=== PATIENT | female | born 1965 | race Caucasian/White ===

== ENCOUNTER 2018-09-29 18:40 | Observation (INO) ==
[2018-09-29] MEDS ORDERED: 0.9 % Sodium Chloride 1,000 ML IVC ONE (19:45)
[2018-09-29] MEDS ORDERED: Ondansetron 4 MG/2 ML VIAL IVP ONE (19:45)
[2018-09-29 20:07] LABS: Basophils # 0.1 K/mcL (0.0-0.2); Basophils % 0.6 %; Eosinophils # 0.1 K/mcL (0.0-0.6); Eosinophils % 0.3 %; Hematocrit 44.3 % (35.3-44.9); Hemoglobin 14.4 g/dL (11.5-15.4); Immature Granulocytes % 0.9 % (0-4); Lymphocytes % 7.7 %; Mean Corpuscular HGB Conc 32.5 g/dL (31.6-35.5); Mean Corpuscular Hemoglobin 25.3 pg (28.0-33.3); Mean Corpuscular Volume 77.7 fL (83.0-100.0); Mean Platelet Volume 11.7 fL (9.4-12.4); Monocytes # 2.2 K/mcL (0.0-1.3); Monocytes % 11.9 %; Neutrophils # 14.8 K/mcL (1.6-8.9); Platelet Count 249 K/mcL (140-400); Red Cell Distribution Width 17.4 % (11.5-14.5); Segmented Neutrophils % 78.6 %
[2018-09-29 20:10] LABS: Lymphocytes # 1.5 K/mcL (0.6-4.6)
[2018-09-29 20:19] LABS: Bilirubin,Urine Small (Negative); Blood,Urine Large (Negative); Clarity,Urine Cloudy (Clear); Color,Urine Yellow (Yellow); Glucose,Urine (UA) Normal (Normal); Ketones,Urine Trace mg/dL (Negative); Leukocyte Esterase,Urine Small (Negative); Nitrite,Urine Negative (Negative); Protein,Urine >=300 mg/dL (Neg-Trace); Specific Gravity,Urine >= 1.030 (1.010-1.025); Urobilinogen,Urine Normal (Normal)
[2018-09-29 20:24] LABS: Alanine Aminotransferase 18 Units/L (7-52); Albumin 4.1 g/dL (3.5-5.7); Albumin/Globulin Ratio 1.3 (1.1-2.2); Alkaline Phosphatase 66 Units/L (34-104); Amylase 14 Units/L (29-103); Aspartate Amino Transferase 11 Units/L (13-39); BUN/Creatinine Ratio 10 (6-26); Bilirubin,Total 0.7 mg/dL (0.3-1.0); Blood Urea Nitrogen 8 mg/dL (6-20); Calcium 9.7 mg/dL (8.6-10.3); Carbon Dioxide 26 mEq/L (23-29); Chloride 97 mEq/L (98-107); Creatine Kinase 42 Units/L (30-223); Globulin 3.1 g/dL (2.4-3.5); Glucose 211 mg/dL (70-105); Lipase 10 Units/L (11-82); Osmolality,Calculated 277 (280-300); Potassium 3.6 mEq/L (3.5-5.1); Sodium 131 mEq/L (136-145); Total Protein 7.2 g/dL (6.4-8.9); Troponin I < 0.03 ng/mL (< 0.04); eGFR For Non-African Americans > 60 (> 60)
[2018-09-29 20:25] LABS: WBC,Urine TNTC per hpf (0-3)
[2018-09-29] MEDS ORDERED: cefTRIAXone 1,000 MG in Water for inj. (sterile) 20 ML 10 ML IVP ONE (20:33)
--- NOTE | 2018-09-29 21:36 | Emergency Department Note ---
Disposition Clinical Impression: Hypoxia Urinary tract infection Qualifiers: Urinary tract infection type: acute cystitis Hematuria presence: without hematuria Qualified Code(s): N30.00 - Acute cystitis without hematuria Disposition: Admitted As Inpatient Condition: Fair Time of Disposition: 01:20 Abdominal Pain HPI - General Chief Complaint: ED Urogenital-Female Stated Complaint: stomach pain Time Seen by Provider: 09/29/18 19:24 Source: patient Mode of arrival: ambulatory Limitations: no limitations Nursing Notes Reviewed: Yes Vital Signs Reviewed: Yes - History of Present Illness HPI Narrative: 53-year-old female presents to the area with complaints of midepigastric abdomin al pain and dysuria. Patient reports she has had the symptoms for approximately 2 days. Patient reports she has had nausea and vomiting for the past 2 days as well. Patient denies any fevers or chills. Patient denies any back pain. Patient reports normal bowel movements. Patient denies similar symptoms in the past. Daughter reports patient is noncompliant. Patient does have a history of COPD and continues to smoke. Patient also has a history of sleep apnea but does not wear CPAP machine. Pt Subjective Complaint: abdominal pain Onset (ago): day(s) (2) Consistency: constant Location: epigastric Pain Severity: moderate Pain Scale: 5 Quality: stabbing, sharp Radiation: none Migration to: no migration Improves with: nothing Worsens with: eating Associated symptoms: Reports: nausea, vomiting, dysuria. Denies: diarrhea, fever Treatments prior to arrival: none - Related Data Home Medications Medication Instructions Recorded Confirmed Albuterol Sulfate [Ventolin Hfa] 2 puff IH Q4H PRN 07/16/16 09/29/18 Aspirin 81 mg PO DAILY 07/16/16 09/29/18 Budesonide/Formoterol 160/4.5 2 puff IH BIDR 07/16/16 09/29/18 [Symbicort 160/4.5] Citalopram [CeleXA] 20 mg PO DAILY 07/16/16 09/29/18 Lisinopril/Hydrochlorothiazide 1 tab PO DAILY 07/16/16 09/29/18 [Zestoretic 10-12.5 mg Tablet] Metformin HCl [Glucophage] 1,000 mg PO BID 07/16/16 09/29/18 Omeprazole Magnesium [Prilosec Otc] 40 mg PO DAILY 07/16/16 09/29/18 Pregabalin [Lyrica] 200 mg PO BID 07/16/16 09/29/18 Tiotropium [place] [Spiriva 2 puff IH BID 07/16/16 09/29/18 Respimat] Oxybutynin [Ditropan] 5 mg PO BID 10/10/17 09/29/18 buPROPion HCl [Zyban] 150 mg PO Q12H 10/10/17 09/29/18 traZODone [TraZODone] 50 mg PO BID 10/10/17 09/29/18 Benzonatate 100 mg PO TID PRN 11/07/17 09/29/18 Ibuprofen 800 mg PO TID PRN 11/07/17 09/29/18 Linagliptin [Tradjenta] 5 mg PO DAILY 11/07/17 09/29/18 HYDROcodone/Acet 5/325 mg [[place] 1 tab PO Q6H PRN 05/03/18 09/29/18 5-325 mg] Previous Rx's Medication Instructions Recorded Rivaroxaban [Xarelto] 15 mg PO BID #42 tablet 04/05/18 Allergies Allergy/AdvReac Type Severity Reaction Status Date / Time acetaminophen [From Percocet] AdvReac Nausea Verified 09/29/18 19:32 Oxycodone [From Percocet] AdvReac Nausea Verified 09/29/18 19:32 tramadol [From Ultram] AdvReac Shakiness Verified 09/29/18 19:32 All systems ED: reviewed and negative except as stated. Review of Systems: As Per HPI Constitutional: Denies: fever, chills Respiratory: Denies: cough, dyspnea Gastrointestinal: Reports: abdominal pain, nausea, vomiting. Denies: diarrhea, constipation Genitourinary: Reports: urgency, dysuria, frequency Musculoskeletal: Denies: back pain, neck pain Integumentary: Denies: rash Neurological: Denies: headache Abdominal Pain PMH - Past Medical History Medical history: Reports: COPD, diabetes, GERD, hyperlipidemia, hypertension Female Surgical History: Reports: cholecystectomy, Tonsillectomy AN/SQQ 89(V)15 [employer] JOURNEY[employer] history: Reports: no AN/SQQ 89(V)15 [employer] JOURNEY[employer] history LMP comments: post menopausal Psychiatric history: Reports: anxiety - Social History Smoking status: Current every day smoker Alcohol use: Reports: occasionally Drug use: Reports: none Physical Exam - General Limitations: no limitations General appearance: alert, in no apparent distress - Eye Eye exam: Present: PERRL, EOMI. Absent: conjunctival injection - ENT ENT exam: mucous membranes dry - Neck Neck exam: Present: normal inspection, full ROM. Absent: lymphadenopathy - Chest Chest inspection: Present: normal inspection, symmetric chest wall rise - Expanded Respiratory Exam Location: wheezes: Left, Right, Lower - Cardiovascular Cardiovascular exam: Present: normal rhythm, tachycardia - Abdominal Exam Abdominal exam: Present: soft, tenderness, normal bowel sounds. Absent: organomegaly Abdominal tenderness: Present: epigastrium, mild - Extremities Exam Extremities exam: Present: normal inspection, full ROM - Back Exam Back exam: Absent: CVA tenderness (R), CVA tenderness (L) - Neurological Exam Neurological exam: Present: alert, oriented X3 - Skin Skin exam: Present: warm, dry, intact, normal color Course Course Narrative: Patient with history of DVT. Patient reports she has been taken off her blood thinner medicine secondary to negative ultrasound. Patient reports this occurred in the past month. I held her xarelto until this invistigated further. Patient's O2 sats when she is sleeping dropped to 84-86%. Patient was placed on 2 L oxygen with improvement of oxygen level to 94-96%. Patient was given a DuoNeb treatment. Even while awake patient cannot maintain her sats gre ater than 88%. We will admit patient for further evaluation and management. I spoken with Dr. Lea and she has accepted patient for admission Vital Signs Temperature 97.8 F 09/29/18 19:25 Pulse Rate 121 09/29/18 19:25 Respiratory Rate 20 09/29/18 19:25 Blood Pressure 116/85 09/29/18 19:25 O2 Sat by Pulse Oximetry 94 09/29/18 19:25 Temperature 98.2 F 09/30/18 00:00 Pulse Rate 108 09/29/18 22:38 Respiratory Rate 20 09/30/18 00:00 Blood Pressure 112/80 09/30/18 00:00 O2 Sat by Pulse Oximetry 95 09/30/18 01:18 Oxygen Delivery Oxygen Delivery Nasal Cannula Abdominal Pain - Differential Diagnosis Differential Diagnosis: Likely: abdominal pain non-specific. Unlikely: constipation, colonic obstruction, small bowel obstruction - Lab Data Lab results reviewed: Yes I reviewed the patient's lab results. Lab results narrative: Patient's labs show a white count elevated at 18,000. Patient's lactic acid level is normal. Patient's urine consistent with urinary tract infection. Results discussed with patient. Result diagrams: 09/29/18 20:00 09/29/18 20:00 Lab Results 09/29/18 09/29/18 09/29/18 Range/Units 19:36 20:00 20:00 WBC 18.8 H (4.3-11.1) K/mcL RBC 5.70 H (3.82-4.97) M/mcL Hgb 14.4 (11.5-15.4) g/dL Hct 44.3 (35.3-44.9) % MCV 77.7 L (83.0-100.0) fL MCH 25.3 L (28.0-33.3) pg MCHC 32.5 (31.6-35.5) g/dL RDW 17.4 H (11.5-14.5) % Plt Count 249 (140-400) K/mcL MPV 11.7 (9.4-12.4) fL Immature Gran % 0.9 (0-4) % Seg Neutrophils % 78.6 % Lymphocytes % 7.7 % Monocytes % 11.9 % Eosinophils % 0.3 % Basophils % 0.6 % Neutrophils # 14.8 H (1.6-8.9) K/mcL Lymphocytes # 1.5 (0.6-4.6) K/mcL Monocytes # 2.2 H (0.0-1.3) K/mcL Eosinophils # 0.1 (0.0-0.6) K/mcL Basophils # 0.1 (0.0-0.2) K/mcL Sodium 131 L (136-145) mEq/L Potassium 3.6 (3.5-5.1) mEq/L Chloride 97 L (98-107) mEq/L Carbon Dioxide 26 (23-29) mEq/L BUN 8 (6-20) mg/dL Creatinine 0.80 (0.60-1.20) mg/dL Est GFR ( Amer) > 60 (> 60) Est GFR (Non-Af Amer) > 60 (> 60) BUN/Creatinine Ratio 10 (6-26) Glucose 211 H (70-105) mg/dL Calculated Osmolality 277 L (280-300) Calcium 9.7 (8.6-10.3) mg/dL Total Bilirubin 0.7 (0.3-1.0) mg/dL AST 11 L (13-39) Units/L ALT 18 (7-52) Units/L Alkaline Phosphatase 66 (34-104) Units/L Creatine Kinase 42 (30-223) Units/L Troponin I < 0.03 (< 0.04) ng/mL Serum Total Protein 7.2 (6.4-8.9) g/dL Albumin 4.1 (3.5-5.7) g/dL Globulin 3.1 (2.4-3.5) g/dL Albumin/Globulin Ratio 1.3 (1.1-2.2) Amylase 14 L (29-103) Units/L Lipase 10 L (11-82) Units/L Urine Color Yellow (Yellow) Urine Clarity Cloudy A (Clear) Urine pH 6.0 (5.0-8.0) pH Units Ur Specific [place] >= 1.030 H (1.010-1.025) Urine Protein >=300 H (Neg-Trace) mg/dL Urine Glucose (UA) Normal (Normal) mg/dL Urine Ketones Trace H (Negative) mg/dL Urine Blood Large H (Negative) Urine Nitrite Negative (Negative) Urine Bilirubin Small H (Negative) Urine Urobilinogen Normal (Normal) mg/dL Ur Leukocyte Esterase Small H (Negative) Urine Microscopic RBC SALES [employer]IVER Urine Microscopic WBC TNTC H (0-3) per hpf Ur Squamous Epith Cells SALES DRIVER Urine Bacteria SALES DRIVER Ur Culture Indicated? YES A (NO) - Radiology Data Radiology results reviewed: Yes I reviewed the patient's radiology results. Patient's chest x-ray was interpreted by radiologist and reviewed by me as negative for acute maladies. Results discussed with patient. - EKG Data EKG attestation: Yes I reviewed and interpreted this EKG. EKG shows normal: sinus rhythm Rate: normal Rhythm: NSR Bryant/QRS: normal Q waves: v2, v3 When compared to previous EKG there are: previous EKG unavailable Interpretation: no acute changes
[2018-09-29] MEDS ORDERED: Ipratropium/Albuterol Neb 3 ML IH ONE (21:47)
[2018-09-29] MEDS ORDERED: 0.9 % Sodium Chloride 500 ML IVC ONE (21:47)
[2018-09-29] MEDS ORDERED: MethylPREDNISolone 40 MG/ML VIAL IVP ONE (23:14)
[2018-09-29] MEDS ORDERED: Naloxone 0.4 MG/ML INJ IVP PRN (23:25)
[2018-09-29] MEDS ORDERED: Dextrose Gel 15 GM/37.5 ML TUBE PO PRN ×2 (23:25)
[2018-09-29] MEDS ORDERED: D5% in Water 1,000 ML IVC PRN (23:25)
[2018-09-29] MEDS ORDERED: Albuterol 2.5 MG/3 ML NEBULIZER IH PRN (23:25)
[2018-09-29] MEDS ORDERED: *HR* Dextrose 50 % in Water (Syg) 50 ML SYRINGE IVP PRN (23:25)
[2018-09-30] MEDS: BuPROPion SR (12 HR) 150 MG TABLET PO SCH ×2 (00:42→11:43)
[2018-09-30] MEDS: Insulin LISPRO 300 UNITS/3 ML VIAL SQ SCH ×5 (01:04→23:43)
[2018-09-30] MEDS: Ipratropium/Albuterol Neb 3 ML IH SCH ×4 (05:42→22:15)
[2018-09-30] MEDS: (Linagliptin [Tradjenta] 5 MG) PO SCH (08:48)
[2018-09-30 08:51] LABS: Hemoglobin 13.3 g/dL (11.5-15.4); Mean Corpuscular HGB Conc 31.7 g/dL (31.6-35.5); Mean Corpuscular Volume 78.9 fL (83.0-100.0); Platelet Count 221 K/mcL (140-400); Red Blood Count 5.32 M/mcL (3.82-4.97); Red Cell Distribution Width 16.8 % (11.5-14.5)
[2018-09-30] MEDS: Aspirin 81 MG TAB.CHEW PO SCH (08:51)
[2018-09-30] MEDS: Pregabalin 50 MG CAPSULE PO SCH ×2 (08:51→22:12)
[2018-09-30] MEDS: *HR* Metformin 500 MG TABLET PO SCH ×2 (08:51→22:12)
[2018-09-30] MEDS: MethylPREDNISolone 40 MG/ML VIAL IVP SCH ×3 (08:52→22:13)
[2018-09-30] MEDS: cefTRIAXone 1,000 MG in Water for inj. (sterile) 20 ML 10 ML IVP SCH (08:52)
[2018-09-30] MEDS: traZODone 50 MG TABLET PO SCH ×2 (08:52→22:13)
[2018-09-30 09:05] LABS: BUN/Creatinine Ratio 14 (6-26); Blood Urea Nitrogen 8 mg/dL (6-20); Calcium 8.9 mg/dL (8.6-10.3); Carbon Dioxide 26 mEq/L (23-29); Chloride 102 mEq/L (98-107); Glucose 273 mg/dL (70-105); Osmolality,Calculated 284 (280-300); Potassium 3.9 mEq/L (3.5-5.1); Sodium 133 mEq/L (136-145); eGFR For Non-African Americans > 60 (> 60)
--- NOTE | 2018-09-30 17:58 | Internal Med History&Physical ---
Date of Encounter: 09/30/18 Time of Encounter: 17:00 Assessment and Plan (1) COPD with acute exacerbation Current visit: Yes Status: Acute Will treat with steroids nc oxygen duonebs will monitor blood sugars and cont pulse ox pt may need home oxygen (2) Nausea vomiting and diarrhea Current visit: Yes Status: Acute will treat nausea will give hydration and electolytes as needed if loose stool continues will send stool culture (3) Hyponatremia Current visit: Yes Status: Acute will recheck electrolytes will give NS with 20 meq K at 125 per hour pt diet improved now that nausea is controlled (4) Urinary tract infection Current visit: Yes Status: Acute will treat with IV rocephin will send urine culture Qualifiers: Urinary tract infection type: acute cystitis Hematuria presence: without hematuria Qualified Code(s): N30.00 - Acute cystitis without hematuria (5) Hypoxia Current visit: Yes Status: Acute monitor with contin pulse ox oxygen 2 L NC Internal Medicine - H&P: HPI Chief complaint: abdominal pain UTI nausea vomiting sob Admitted From: Home History of present illness: Ms. Roman is a 53 year old female who presented from home to ED. She complained of crampy abdominal pain, dysuria, nausea and vomiting and diarrhea, and sob. She reported symptoms for 2 days worse today . She has not eaten well in 2 days. She does have copd and does smoke. She has hx of DM. Her heart rate was elevated in ED and her pulse ox was low in the 80s. In ED she was found to have luekocytosis and hyponatremia. She was found to have severe uti. She was found to have acute copd exacerbation. Blood sugar was stable. She denies mcknight or chest pain. Past Med Surg Social Fam HX - Past Medical History Medical history: COPD, diabetes, GERD, hyperlipidemia, hypertension Additional medical history: sleep apnea. hx dvt rle post surgery Psychiatric history: anxiety - Past Surgical History Surgical History: cholecystectomy, other Additional surgical history: tubal. phlebectomy. tonsils - Social History Smoking Status: Current every day smoker Smokeless Tobacco Status: No Alcohol use: occasionally Drug use: none Internal Medicine - H&P: Meds Albuterol Sulfate [Ventolin Hfa] 2 puff IH Q4H PRN 07/16/16 [History] Aspirin 81 mg PO DAILY 07/16/16 [History] Budesonide/Formoterol 160/4.5 [Symbicort 160/4.5] 2 puff IH BIDR 07/16/16 [History] Citalopram [CeleXA] 20 mg PO DAILY 07/16/16 [History] Lisinopril/Hydrochlorothiazide [Zestoretic 10-12.5 mg Tablet] 1 tab PO DAILY 07/16/16 [History] Metformin HCl [Glucophage] 1,000 mg PO BID 07/16/16 [History] Omeprazole Magnesium [Prilosec Otc] 40 mg PO DAILY 07/16/16 [History] Pregabalin [Lyrica] 200 mg PO BID 07/16/16 [History] Tiotropium [place] [Spiriva Respimat] 2 puff IH BID 07/16/16 [History] Oxybutynin [Ditropan] 5 mg PO BID 10/10/17 [History] buPROPion HCl [Zyban] 150 mg PO Q12H 10/10/17 [History] traZODone [TraZODone] 50 mg PO BID 10/10/17 [History] Benzonatate 100 mg PO TID PRN 11/07/17 [History] Ibuprofen 800 mg PO TID PRN 11/07/17 [History] Linagliptin [Tradjenta] 5 mg PO DAILY 11/07/17 [History] Rivaroxaban [Xarelto] 15 mg PO BID #42 tablet 04/05/18 [Rx] HYDROcodone/Acet 5/325 mg [[place] 5-325 mg] 1 tab PO Q6H PRN 05/03/18 [History] Allergy/AdvReac Type Severity Reaction Status Date / Time acetaminophen [From Percocet] AdvReac Nausea Verified 09/29/18 19:32 Oxycodone [From Percocet] AdvReac Nausea Verified 09/29/18 19:32 tramadol [From Ultram] AdvReac Shakiness Verified 09/29/18 19:32 All Systems PM: A 10-system review of systems was performed and is negative for pertinent findings except as documented above in the HPI. - Constitutional Constitutional: as per HPI - Constitutional Vitals: Temp Pulse Resp BP Pulse Ox 98.0 F 84 18 110/73 93 09/30/18 16:38 09/30/18 16:38 09/30/18 16:38 09/30/18 16:38 09/30/18 16:38 General appearance: Present: mild distress, A&O X 3, obese, answers questions appropriately - ENT ENT exam: Present: mucous membranes dry Additional comments: no lesions - Neck Neck exam general surgery: Present: full ROM, lymphadenopathy - Respiratory Additional comments: positive bila wheezes - Cardiovascular Additional comments: regular no murmer - GI/Abdominal Additional comments: no rebound mild tenderness generalized bs present Internal Med - H&P Results - Labs CBC & Chem 7: 09/30/18 08:14 09/30/18 08:14 Labs: Short CBC 09/29/18 09/30/18 Range/Units 20:00 08:14 WBC 18.8 H 14.0 H (4.3-11.1) K/mcL Hgb 14.4 13.3 (11.5-15.4) g/dL Hct 44.3 42.0 (35.3-44.9) % Plt Count 249 221 (140-400) K/mcL Neutrophils # 14.8 H (1.6-8.9) K/mcL BMP 09/29/18 09/30/18 20:00 08:14 Sodium 131 L 133 L Potassium 3.6 3.9 Chloride 97 L 102 Carbon Dioxide 26 26 BUN 8 8 Creatinine 0.80 0.59 L Glucose 211 H 273 H Calcium 9.7 8.9 Cardiac Enzymes 09/29/18 Range/Units 20:00 Troponin I < 0.03 (< 0.04) ng/mL Liver Function 09/29/18 Range/Units 20:00 Total Bilirubin 0.7 (0.3-1.0) mg/dL AST 11 L (13-39) Units/L ALT 18 (7-52) Units/L Alkaline Phosphatase 66 (34-104) Units/L Albumin 4.1 (3.5-5.7) g/dL Urine 09/29/18 Range/Units 19:36 Urine Color Yellow (Yellow) Urine Clarity Cloudy A (Clear) Urine pH 6.0 (5.0-8.0) pH Units Ur Specific [place] >= 1.030 H (1.010-1.025) Urine Protein >=300 H (Neg-Trace) mg/dL Urine Glucose (UA) Normal (Normal) mg/dL - Impressions ITS Impressions Abdomen/Pelvis CT 09/29/18 20:11 IMPRESSION: No evidence of obstructive uropathy. Normal appendix. Fatty infiltration of the liver which was previously seen. Stable left adrenal nodule which is likely an adenoma. Minimal fat containing ventral hernia. D/ / 09/29/2018 21:03:08 Jenny Pearl MD / harrison Interpreting Provider: Jenny Pearl MD Chest X-Ray 09/29/18 22:30 IMPRESSION: No acute process. D/ / Arielle Juárez MD / Arielle Juárez MD Interpreting Provider: Arielle Juárez MD
[2018-09-30] MEDS: Nicotine 21 MG PATCH.TD24 TD SCH (18:23)
[2018-09-30] MEDS: 0.9 % Sodium Chloride w KCl 20 MEQ/1,000 ML MLS IVC SCH (18:25)
[2018-09-30 19:45] LABS: Estimated Average Glucose 177 mg/dl; Hemoglobin A1C 7.8 %
[2018-09-30] MEDS: Budesonide/Formoterol 160/4.5 1 PUFF INH IH SCH (22:15)
[2018-09-30] MEDS: *HR* HYDROcodone/Acet 5/325 mg TABLET PO PRN (22:21)
[2018-09-30] MEDS: Ibuprofen 800 MG TABLET PO PRN (22:21)
[2018-10-01] MEDS: 0.9 % Sodium Chloride w KCl 20 MEQ/1,000 ML MLS IVC SCH ×3 (03:46→23:50)
[2018-10-01] MEDS: Ipratropium/Albuterol Neb 3 ML IH SCH ×4 (04:51→21:28)
[2018-10-01] MEDS: Insulin LISPRO 300 UNITS/3 ML VIAL SQ SCH ×4 (05:23→23:45)
[2018-10-01] MEDS: Aspirin 81 MG TAB.CHEW PO SCH (09:17)
[2018-10-01] MEDS: Budesonide/Formoterol 160/4.5 1 PUFF INH IH SCH ×2 (09:17→21:28)
[2018-10-01] MEDS: MethylPREDNISolone 40 MG/ML VIAL IVP SCH ×3 (09:18→21:24)
[2018-10-01] MEDS: *HR* Metformin 500 MG TABLET PO SCH ×2 (09:18→21:26)
[2018-10-01] MEDS: cefTRIAXone 1,000 MG in Water for inj. (sterile) 20 ML 10 ML IVP SCH (09:18)
[2018-10-01] MEDS: Pregabalin 50 MG CAPSULE PO SCH ×2 (09:18→21:27)
[2018-10-01] MEDS: (Linagliptin [Tradjenta] 5 MG) PO SCH (09:19)
[2018-10-01] MEDS: Nicotine 21 MG PATCH.TD24 TD SCH (09:19)
[2018-10-01] MEDS: traZODone 50 MG TABLET PO SCH ×2 (09:21→21:28)
[2018-10-01] MEDS: Ibuprofen 800 MG TABLET PO PRN (09:38)
--- NOTE | 2018-10-01 14:29 | Internal Med Progress Note ---
Date of Encounter: 10/01/18 Time of Encounter: 02:25 - Assessment and plan (1) COPD with acute exacerbation Current Visit: Yes Status: Acute (2) Nausea vomiting and diarrhea Current Visit: Yes Status: Acute (3) Hyponatremia Current Visit: Yes Status: Acute (4) Urinary tract infection Current Visit: Yes Status: Acute Qualifiers: Urinary tract infection type: acute cystitis Hematuria presence: without hematuria Qualified Code(s): N30.00 - Acute cystitis without hematuria (5) Hypoxia Current Visit: Yes Status: Acute - Subjective Interval history: Assessment and Plan (1) COPD with acute exacerbation Current visit: Yes Status: Acute Treating with IV steroids nc oxygen duonebs q 4h will monitor blood sugars and pulse ox pt may need home oxygen pt is concerned about this dtr states pt in 2008 and used oxygen discussed smoking dangers pt agrees to nicotine patch (2) Nausea vomiting and diarrhea Current visit: Yes Status: Acute resolved nausea may have been related to uti or hyponatremia will give hydration and electolytes as needed if loose stool continues will send stool culture (3) Hyponatremia Current visit: Yes Status: Acute will recheck electrolytes will give NS with 20 meq K at 125 per hour pt diet improved now that nausea is controlled feeling stronger (4) Urinary tract infection Current visit: Yes Status: Acute will treat with IV rocephin for now urine culture pend resend UA Qualifiers: Urinary tract infection type: acute cystitis Hematuria presence: without hematuria Qualified Code(s): N30.00 - Acute cystitis without hematuria (5) Hypoxia Current visit: Yes Status: Acute monitor with contin pulse ox oxygen 2 L NC Interval HX OVerall today pt is improving no more vomiting and able to eat. Is using nicotine patch . Did restart her home bipolar depression medications. Mood is stable. Ms. Roman is a 53 year old female who presented from home to ED. She complained of crampy abdominal pain, dysuria, nausea and vomiting and diarrhea, and sob. Diarrhea resolved. Abd pain improving. She has not eaten well in days before admission. She does have copd and does smoke. She has hx of DM. Her heart rate was elevated in ED and her pulse ox was low in the 80s. In ED she was found to have luekocytosis and hyponatremia. She was found to have severe uti. She was found to have acute copd exacerbation. Blood sugar wa s stable. She denies mcknight or chest pain. Allergy/AdvReac Type Severity Reaction Status Date / Time acetaminophen [From Percocet] AdvReac Nausea Verified 09/29/18 19:32 Oxycodone [From Percocet] AdvReac Nausea Verified 09/29/18 19:32 tramadol [From Ultram] AdvReac Shakiness Verified 09/29/18 19:32 General appearance: Present: WF obese talkative , A&O X 3, answers questions appropriately - Neck Neck exam general surgery: Present: thick neck no bruit or mass - Respiratory Additional comments: positive bilateral musical wheeze improved effort - Cardiovascular Additional comments: regular no murmer - GI/Abdominal Additional comments: no rebound mild tenderness generalized bs present - Constitutional Vitals: Temp Pulse Resp BP Pulse Ox 97.6 F 98 17 95/60 95 10/01/18 12:18 10/01/18 12:18 10/01/18 12:18 10/01/18 12:18 10/01/18 12:18 General appearance: Present: mild distress, A&O X 3, obese, answers questions appropriately Internal Medicine: Result - Labs CBC & Chem 7: 09/30/18 08:14 09/30/18 08:14 Consult Discharge Plan - Plan Referrals: NONE,PCP [Primary Care Provider] -
[2018-10-01 15:18] LABS: Bilirubin,Urine Negative (Negative); Blood,Urine Negative (Negative); Clarity,Urine Clear (Clear); Color,Urine Yellow (Yellow); Glucose,Urine (UA) Normal (Normal); Ketones,Urine Negative (Negative); Leukocyte Esterase,Urine Trace (Negative); Nitrite,Urine Negative (Negative); Protein,Urine Negative (Neg-Trace); Specific Gravity,Urine 1.015 (1.010-1.025); Urobilinogen,Urine Normal (Normal)
[2018-10-01] MEDS: *HR* HYDROcodone/Acet 5/325 mg TABLET PO PRN (17:03)
[2018-10-02] MEDS: Ipratropium/Albuterol Neb 3 ML IH SCH ×2 (04:49→09:28)
[2018-10-02] MEDS: Insulin LISPRO 300 UNITS/3 ML VIAL SQ SCH ×2 (04:59→12:06)
[2018-10-02 05:38] LABS: BUN/Creatinine Ratio 20 (6-26); Blood Urea Nitrogen 14 mg/dL (6-20); Carbon Dioxide 28 mEq/L (23-29); Chloride 104 mEq/L (98-107); Glucose 221 mg/dL (70-105); Osmolality,Calculated 297 (280-300); Potassium 4.5 mEq/L (3.5-5.1); Sodium 140 mEq/L (136-145); eGFR For Non-African Americans > 60 (> 60)
[2018-10-02 07:34] VITALS: BP 130/68
[2018-10-02 09:00] LABS: % Iron Saturation 3 % (15-50); Iron 10 mcg/dL (50-170); Transferrin 268 mg/dL (203-362)
[2018-10-02] MEDS: Budesonide/Formoterol 160/4.5 1 PUFF INH IH SCH (09:34)
[2018-10-02] MEDS: Nicotine 21 MG PATCH.TD24 TD SCH (09:36)
[2018-10-02] MEDS: Pregabalin 50 MG CAPSULE PO SCH (09:36)
[2018-10-02] MEDS: traZODone 50 MG TABLET PO SCH (09:37)
[2018-10-02] MEDS: MethylPREDNISolone 40 MG/ML VIAL IVP SCH (09:37)
[2018-10-02] MEDS: *HR* Metformin 500 MG TABLET PO SCH (09:37)
[2018-10-02] MEDS: Aspirin 81 MG TAB.CHEW PO SCH (09:37)
[2018-10-02] MEDS: cefTRIAXone 1,000 MG in Water for inj. (sterile) 20 ML 10 ML IVP SCH (09:37)
[2018-10-02] MEDS: (Linagliptin [Tradjenta] 5 MG) PO SCH (09:38)
[2018-10-02] MEDS: 0.9 % Sodium Chloride w KCl 20 MEQ/1,000 ML MLS IVC SCH (09:49)
[2018-10-02] MEDS: Ibuprofen 800 MG TABLET PO PRN (09:52)
--- NOTE | 2018-10-02 11:24 | Discharge Summary ---
- NOTES TO OUTPATIENT PROVIDER Notes to Outpatient Provider: follow up for possible sleep study and UTI. Date of Encounter: 10/02/18 Time of Encounter: 11:22 - Discharge Diagnosis (1) COPD with acute exacerbation Priority: Primary Status: Acute Comments: Improving. Continue inhaled meds. Continue PO prednisone. Follow up with PCP within one week. O2 sats have remaining greater than 94%. On room air. (2) Urinary tract infection Priority: Primary Status: Acute Comments: will change atb from rocephin to omnicef. f/u with PCP within 1 week. Qualifiers: Urinary tract infection type: acute cystitis Hematuria presence: without hematuria Qualified Code(s): N30.00 - Acute cystitis without hematuria Hospital course: Ms. Roman is a 53 year old female discharging to home after presenting to the hospital with abdominal pain. Patient has been treated for UTI. Denies any fever, chills, nausea, vomiting or diarrhea. Denies any urinary symptoms such as urgency, hematuria or frequency. Does have history of COPD. Patient states she is not anymore short of breath, she was prior to admission. Maintaining oxygen levels greater than 94% on room air. Will continue prednisone. Has nebulizer and inhalers at home. Encourage patient to follow up with PCP within one week. Discussed smoking cessation. Discharge discussed with: patient, nurse Time spent discussing smoking cessation with patient: 3 to 10 minutes - Time Spent with Patient Total time spent providing and/or coordinating discharge services: Less than 30 minutes - Discharge Medications Home Medications: Albuterol Sulfate [Ventolin Hfa] 2 puff IH Q4H PRN 07/16/16 [History] Aspirin 81 mg PO DAILY 07/16/16 [History] Budesonide/Formoterol 160/4.5 [Symbicort 160/4.5] 2 puff IH BIDR 07/16/16 [History] Citalopram [CeleXA] 20 mg PO DAILY 07/16/16 [History] Lisinopril/Hydrochlorothiazide [Zestoretic 10-12.5 mg Tablet] 1 tab PO DAILY 07/16/16 [History] Metformin HCl [Glucophage] 1,000 mg PO BID 07/16/16 [History] Omeprazole Magnesium [Prilosec Otc] 40 mg PO DAILY 07/16/16 [History] Pregabalin [Lyrica] 200 mg PO BID 07/16/16 [History] Tiotropium [place] [Spiriva Respimat] 2 puff IH BID 07/16/16 [History] Oxybutynin [Ditropan] 5 mg PO BID 10/10/17 [History] buPROPion HCl [Zyban] 150 mg PO Q12H 10/10/17 [History] traZODone [TraZODone] 50 mg PO BID 10/10/17 [History] Benzonatate 100 mg PO TID PRN 11/07/17 [History] Ibuprofen 800 mg PO TID PRN 11/07/17 [History] Linagliptin [Tradjenta] 5 mg PO DAILY 11/07/17 [History] Rivaroxaban [Xarelto] 15 mg PO BID #42 tablet 04/05/18 [Rx] HYDROcodone/Acet 5/325 mg [[place] 5-325 mg] 1 tab PO Q6H PRN 05/03/18 [History] Insulin LISPRO [HumaLOG] 0 units SQ Q6HR vial 10/02/18 [Rx] Lurasidone [Latuda] 20 mg PO HS tablet 10/02/18 [Rx] Allergies/Adverse Reactions: Allergy/AdvReac Type Severity Reaction Status Date / Time acetaminophen [From Percocet] AdvReac Nausea Verified 09/29/18 19:32 Oxycodone [From Percocet] AdvReac Nausea Verified 09/29/18 19:32 tramadol [From Ultram] AdvReac Shakiness Verified 09/29/18 19:32 Date of admission: 09/29/18 23:44 Primary care physician: PCP NONE Discharging clinician: Iftikhar Rodirguez Anticipated date of discharge: 10/02/18 - Constitutional Vitals: Temp Pulse Resp BP Pulse Ox 97.6 F 92 18 130/68 95 10/02/18 07:33 10/02/18 07:33 10/02/18 09:31 10/02/18 07:33 10/02/18 09:36 General appearance: Present: cooperative, mild distress, A&O X 3, pleasant, no acute distress, obese, answers questions appropriately - Head Head exam: Present: atraumatic, normocephalic - Eye Eye exam: Present: PERRL, conjuntiva pink, sclera anicteric Pupils: Present: PERRL - Neck Neck exam general surgery: Present: supple, trachea midline. Absent: lymphadenopathy - Respiratory Respiratory exam: Present: CTAB. Absent: accessory muscle use, rales, rhonchi, wheezes Additional comments: Diminished bilateral lower lobes - Cardiovascular Cardiovascular exam: Present: RRR, +S1, +S2. Absent: diastolic murmur, gallop, rubs, systolic murmur - GI/Abdominal GI/Abdominal exam: Present: normal bowel sounds, soft, no peritoneal signs. Absent: distended, tenderness - Extremities Exam Extremities exam: Present: warm, radial pulses palpable and symmetrical. Absent: calf tenderness, cyanotic, pedal edema - Neurological Exam Neurological exam: Present: CN II-XII intact, oriented X3, no focal deficits. Absent: pronater drift, facial droop, speech deficit - Skin Skin exam: Present: dry, intact - Patient Status Disposition: Home, Self-Care Condition: Good Functional capacity at discharge: independent ambulation Overall status at discharge: patient is progressing back to baseline - Discharge Instructions Follow Up With: NONE,PCP [Primary Care Provider] - Forms: ED Satisfaction Letter - Diet and Activity Activity: increase activity as tolerated Diet: diabetic diet
--- NOTE | 2018-10-03 21:58 | Electrocardiograph Report ---
[address] [address] Test Date: 2018-09-29 Pat Name: Le Roman Department: 2000 Room: 112 Gender: F Talent Development Specialist: : [id number] Requested By: Kanwal Mendenhall Order Number: [id number] Reading MD: Hong Garcia Measurements Intervals [place] Rate: 114 P: 41 AK: 135 QRS: 79 QRSD: 92 T: 29 QT: 316 QTc: 383 Interpretive Statements SINUS TACHYCARDIA POOR R WAVE PROGRESSION Electronically Signed On 10-03-2018 21:57:25 EST by Hong Garcia
== END 2018-10-02 12:58 | disposition home or self-care (01) ==
LOC: INPGRE 18:40 → EMEROOGRE 18:40 → INPGRE 09-30
PROVIDERS: ADMIT Family Medicine; ATTEND Internal Medicine

== ENCOUNTER 2019-09-20 18:41 | Inpatient (IN) ==
[2019-09-20] MEDS ORDERED: Ipratropium/Albuterol Neb 3 ML IH ONE (19:04)
[2019-09-20] MEDS ORDERED: MethylPREDNISolone 40 MG/ML VIAL IVP ONE (19:05)
[2019-09-20 20:54] LABS: Basophils # 0.1 K/mcL (0.0-0.2); Basophils % 0.3 %; Hematocrit 40.8 % (35.3-44.9); Hemoglobin 12.7 g/dL (11.5-15.4); Immature Granulocytes % 2.2 % (0-4); Lymphocytes # 1.2 K/mcL (0.6-4.6); Lymphocytes % 6.6 %; Mean Corpuscular HGB Conc 31.1 g/dL (31.6-35.5); Mean Corpuscular Volume 77.1 fL (83.0-100.0); Mean Platelet Volume 13.1 fL (9.4-12.4); Monocytes # 0.5 K/mcL (0.0-1.3); Platelet Count 266 K/mcL (140-400); Red Blood Count 5.29 M/mcL (3.82-4.97); Red Cell Distribution Width 17.1 % (11.5-14.5); Segmented Neutrophils % 87.9 %; White Blood Count 17.4 K/mcL (4.3-11.1)
[2019-09-20] MEDS ORDERED: Naloxone 0.4 MG/ML INJ IVP PRN ×2 (21:05→22:48)
[2019-09-20 21:06] LABS: BUN/Creatinine Ratio 16 (6-26); Blood Urea Nitrogen 16 mg/dL (6-20); Calcium 9.2 mg/dL (8.6-10.3); Carbon Dioxide 22 mEq/L (23-29); Chloride 97 mEq/L (98-107); Glucose 441 mg/dL (70-105); Osmolality,Calculated 292 (280-300); Potassium 4.4 mEq/L (3.5-5.1); Sodium 131 mEq/L (136-145); eGFR For African Americans > 60 (> 60); eGFR For Non-African Americans > 60 (> 60)
[2019-09-20 21:07] LABS: Neutrophils # 15.3 K/mcL (1.6-8.9)
[2019-09-20] MEDS ORDERED: Ipratropium/Albuterol Neb 3 ML IH SCH (21:15)
[2019-09-20 21:16] LABS: Platelet Estimate Normal (Normal)
[2019-09-20] MEDS ORDERED: BuPROPion SR (12 HR) 150 MG TABLET PO SCH (22:15)
[2019-09-21] MEDS ORDERED: MethylPREDNISolone 40 MG/ML VIAL IVP SCH
[2019-09-21] MEDS ORDERED: Ibuprofen 800 MG TABLET PO SCH
[2019-09-21] MEDS ORDERED: Ipratropium/Albuterol Neb 3 ML IH SCH
[2019-09-21] MEDS: Ibuprofen 800 MG TABLET PO SCH ×3 (01:09→17:22)
[2019-09-21] MEDS: MethylPREDNISolone 40 MG/ML VIAL IVP SCH ×3 (01:10→17:23)
[2019-09-21] MEDS: Ipratropium/Albuterol Neb 3 ML IH SCH ×6 (01:20→20:15)
[2019-09-21] MEDS: traZODone 50 MG TABLET PO SCH ×2 (01:22→20:11)
[2019-09-21] MEDS: Tiotropium 18 MCG inhalation IH SCH (07:28)
[2019-09-21] MEDS: Aspirin 81 MG TAB.CHEW PO SCH (08:48)
[2019-09-21] MEDS: BuPROPion SR (12 HR) 150 MG TABLET PO SCH ×2 (08:48→22:06)
[2019-09-21] MEDS: Pregabalin 50 MG CAPSULE PO SCH ×2 (08:48→20:10)
[2019-09-21] MEDS: *HR* Metformin 500 MG TABLET PO SCH ×2 (08:49→17:22)
[2019-09-21] MEDS ORDERED: *HR* Metformin 500 MG TABLET PO SCH (09:00)
[2019-09-21] MEDS ORDERED: Pregabalin 50 MG CAPSULE PO SCH (09:00)
[2019-09-21] MEDS ORDERED: Aspirin 81 MG TAB.CHEW PO SCH (09:00)
[2019-09-21] MEDS ORDERED: Tiotropium 18 MCG inhalation IH SCH (09:00)
[2019-09-21] MEDS ORDERED: Budesonide/Formoterol 160/4.5 1 PUFF INH IH SCH (10:00)
[2019-09-21] MEDS: Budesonide/Formoterol 160/4.5 1 PUFF INH IH SCH ×2 (11:12→20:16)
[2019-09-21] MEDS ORDERED: *HR* Dextrose 50 % in Water (Syg) 50 ML SYRINGE IVP PRN (12:29)
[2019-09-21] MEDS ORDERED: Dextrose Gel 15 GM/37.5 ML TUBE PO PRN ×2 (12:29)
[2019-09-21] MEDS ORDERED: D5% in Water 1,000 ML IVC PRN (12:29)
[2019-09-21] MEDS: Levalbuterol Neb 1.25 MG/3 ML IH SCH ×2 (13:50→22:09)
[2019-09-21] MEDS: Insulin LISPRO 300 UNITS/3 ML VIAL SQ SCH ×2 (17:25→22:00)
[2019-09-21] MEDS: Ascorbic Acid 500 MG TABLET PO SCH (20:11)
[2019-09-21] MEDS ORDERED: traZODone 50 MG TABLET PO SCH (21:00)
[2019-09-22] MEDS: Ipratropium/Albuterol Neb 3 ML IH SCH ×6 (00:09→21:02)
[2019-09-22] MEDS: Ibuprofen 800 MG TABLET PO SCH ×2 (00:09→08:13)
[2019-09-22] MEDS: MethylPREDNISolone 40 MG/ML VIAL IVP SCH ×2 (00:09→08:14)
[2019-09-22 05:56] LABS: Basophils # 0.1 K/mcL (0.0-0.2); Basophils % 0.4 %; Eosinophils % 0.1 %; Hematocrit 40.2 % (35.3-44.9); Hemoglobin 12.5 g/dL (11.5-15.4); Immature Granulocytes % 3.1 % (0-4); Lymphocytes # 1.2 K/mcL (0.6-4.6); Lymphocytes % 6.8 %; Mean Corpuscular HGB Conc 31.1 g/dL (31.6-35.5); Mean Corpuscular Hemoglobin 23.7 pg (28.0-33.3); Mean Corpuscular Volume 76.1 fL (83.0-100.0); Monocytes # 0.7 K/mcL (0.0-1.3); Monocytes % 3.6 %; Neutrophils # 15.7 K/mcL (1.6-8.9); Platelet Count 236 K/mcL (140-400); Red Blood Count 5.28 M/mcL (3.82-4.97); Red Cell Distribution Width 17.4 % (11.5-14.5); White Blood Count 18.2 K/mcL (4.3-11.1)
[2019-09-22 06:15] LABS: BUN/Creatinine Ratio 25 (6-26); Blood Urea Nitrogen 21 mg/dL (6-20); Calcium 9.1 mg/dL (8.6-10.3); Carbon Dioxide 24 mEq/L (23-29); Chloride 97 mEq/L (98-107); Glucose 361 mg/dL (70-105); Osmolality,Calculated 286 (280-300); Potassium 4.5 mEq/L (3.5-5.1); Sodium 129 mEq/L (136-145); eGFR For African Americans > 60 (> 60); eGFR For Non-African Americans > 60 (> 60)
[2019-09-22] MEDS: Budesonide/Formoterol 160/4.5 1 PUFF INH IH SCH ×2 (07:17→21:07)
[2019-09-22] MEDS: Tiotropium 18 MCG inhalation IH SCH (07:18)
[2019-09-22] MEDS: Aspirin 81 MG TAB.CHEW PO SCH (08:13)
[2019-09-22] MEDS: *HR* Metformin 500 MG TABLET PO SCH ×2 (08:13→17:32)
[2019-09-22] MEDS: Ascorbic Acid 500 MG TABLET PO SCH ×2 (08:13→21:02)
[2019-09-22] MEDS: Pregabalin 50 MG CAPSULE PO SCH ×2 (08:13→21:01)
[2019-09-22] MEDS: Multivit/Ca/Min/Fe/FA 1 TAB TABLET PO SCH (08:13)
[2019-09-22] MEDS: Insulin LISPRO 300 UNITS/3 ML VIAL SQ SCH ×4 (08:18→21:06)
[2019-09-22] MEDS: BuPROPion SR (12 HR) 150 MG TABLET PO SCH ×2 (08:24→21:02)
[2019-09-22] MEDS: Levalbuterol Neb 1.25 MG/3 ML IH SCH ×2 (09:12→23:09)
[2019-09-22] MEDS ORDERED: Insulin NPH 300 UNIT/3 ML per UNIT SQ ONE (13:30)
[2019-09-22] MEDS ORDERED: Furosemide 40 MG/4 ML VIAL IVP ONE (13:32)
[2019-09-22] MEDS: cefTAZidime 1,000 MG in Water for inj. (sterile) 10 ML IVP SCH ×2 (14:52→23:08)
[2019-09-22] MEDS: traZODone 50 MG TABLET PO SCH (21:02)
[2019-09-23] MEDS: Ipratropium/Albuterol Neb 3 ML IH SCH ×6 (01:29→20:49)
[2019-09-23 05:18] LABS: Hematocrit 42.1 % (35.3-44.9); Mean Corpuscular HGB Conc 30.9 g/dL (31.6-35.5); Mean Corpuscular Hemoglobin 23.6 pg (28.0-33.3); Mean Corpuscular Volume 76.3 fL (83.0-100.0); Mean Platelet Volume 12.2 fL (9.4-12.4); Platelet Count 185 K/mcL (140-400); Red Blood Count 5.52 M/mcL (3.82-4.97); Red Cell Distribution Width 17.7 % (11.5-14.5); White Blood Count 15.7 K/mcL (4.3-11.1)
[2019-09-23 05:34] LABS: BUN/Creatinine Ratio 32 (6-26); Blood Urea Nitrogen 25 mg/dL (6-20); Calcium 9.2 mg/dL (8.6-10.3); Carbon Dioxide 28 mEq/L (23-29); Chloride 98 mEq/L (98-107); Glucose 147 mg/dL (70-105); Osmolality,Calculated 291 (280-300); Potassium 3.9 mEq/L (3.5-5.1); Sodium 137 mEq/L (136-145); eGFR For African Americans > 60 (> 60); eGFR For Non-African Americans > 60 (> 60)
[2019-09-23] MEDS: Budesonide/Formoterol 160/4.5 1 PUFF INH IH SCH ×2 (07:11→20:53)
[2019-09-23] MEDS: Tiotropium 18 MCG inhalation IH SCH (07:13)
[2019-09-23] MEDS: Insulin LISPRO 300 UNITS/3 ML VIAL SQ SCH ×4 (08:56→20:50)
[2019-09-23] MEDS ORDERED: predniSONE 20 MG TABLET PO SCH (09:00)
[2019-09-23] MEDS: *HR* Metformin 500 MG TABLET PO SCH ×2 (09:12→16:36)
[2019-09-23] MEDS: BuPROPion SR (12 HR) 150 MG TABLET PO SCH ×2 (09:12→20:50)
[2019-09-23] MEDS: Aspirin 81 MG TAB.CHEW PO SCH (09:12)
[2019-09-23] MEDS: Pregabalin 50 MG CAPSULE PO SCH ×2 (09:12→20:49)
[2019-09-23] MEDS: Multivit/Ca/Min/Fe/FA 1 TAB TABLET PO SCH (09:13)
[2019-09-23] MEDS: Ascorbic Acid 500 MG TABLET PO SCH ×2 (09:13→20:48)
[2019-09-23] MEDS: cefTAZidime 1,000 MG in Water for inj. (sterile) 10 ML IVP SCH ×3 (09:14→22:46)
[2019-09-23] MEDS: Levalbuterol Neb 1.25 MG/3 ML IH SCH ×2 (09:37→22:46)
[2019-09-23] MEDS ORDERED: Ibuprofen 800 MG TABLET PO ONE (11:50)
[2019-09-23] MEDS: traZODone 50 MG TABLET PO SCH (20:50)
[2019-09-24] MEDS: Ipratropium/Albuterol Neb 3 ML IH SCH ×4 (01:24→11:52)
[2019-09-24] MEDS: Tiotropium 18 MCG inhalation IH SCH (07:18)
[2019-09-24] MEDS: Budesonide/Formoterol 160/4.5 1 PUFF INH IH SCH (07:19)
[2019-09-24] MEDS: Ascorbic Acid 500 MG TABLET PO SCH (08:15)
[2019-09-24] MEDS: *HR* Metformin 500 MG TABLET PO SCH (08:16)
[2019-09-24] MEDS: Multivit/Ca/Min/Fe/FA 1 TAB TABLET PO SCH (08:16)
[2019-09-24] MEDS: cefTAZidime 1,000 MG in Water for inj. (sterile) 10 ML IVP SCH (08:16)
[2019-09-24] MEDS: Aspirin 81 MG TAB.CHEW PO SCH (08:16)
[2019-09-24] MEDS: Insulin LISPRO 300 UNITS/3 ML VIAL SQ SCH ×2 (08:18→11:48)
[2019-09-24] MEDS ORDERED: predniSONE 20 MG TABLET PO SCH (09:00)
[2019-09-24] MEDS: Levalbuterol Neb 1.25 MG/3 ML IH SCH (09:49)
[2019-09-24] MEDS: Pregabalin 50 MG CAPSULE PO SCH (09:52)
[2019-09-24 09:59] VITALS: BP 119/80
[2019-09-24] MEDS ORDERED: Famotidine 20 MG TABLET PO SCH (10:09)
[2019-09-24] MEDS: BuPROPion SR (12 HR) 150 MG TABLET PO SCH (10:30)
[2019-09-24] MEDS ORDERED: FLU Vac QV 19-20 (6Month+)/PF 0.5 ML SYRINGE IM ONE (12:03)
== END 2019-09-24 13:08 | disposition home or self-care (01) | DRG 140 ==
LOC: EMEROOGRE 18:41 → INPGRE 18:41
PROVIDERS: ADMIT Internal Medicine; ATTEND Internal Medicine